=== PATIENT | male | born 1995 | race Caucasian/White ===

== ENCOUNTER 2023-06-11 16:34 | Emergency (ER) | payer OTHER ==
[~2023-06-11] VITALS: Ht 177.8 cm; Wt 88.5 kg
[2023-06-11 16:40] VITALS: BP 125/80
[2023-06-11] MEDS ORDERED: CEPH500 PO (17:10)
== END 2023-06-11 17:36 | disposition home or self-care (01) ==
LOC: ER 16:34
DX: L03.116 Cellulitis of left lower limb (principal)
CPT/HCPCS: 99283; A9270